=== PATIENT | female | born 1980 | race Caucasian/White ===

== ENCOUNTER → 2021-07-09 | Outpatient (CLI) | payer BC ==
[~2021-07-09] MED LIST: IBU800 M1 PO; PERCOCET 325 MG1 TA2 PO; PRENATAL1 TA7 PO
== END ==
LOC: MC.RAD 11:00
DX: Z12.31 Encounter for screening mammogram for malignant neoplasm of breast (principal)

== ENCOUNTER 2023-08-29 23:13 | Inpatient (IN) | payer BC ==
[~2023-08-29] VITALS: Ht 175.3 cm; Wt 89.1 kg
[2023-08-30] VITALS (28 sets, daily range): BP systolic 86–150; BP diastolic 51–93; PULSE 70–137; TEMP 97.8–98.1
--- NOTE | 2023-08-30 | NUR ---
MATERNAL- HEART RATE COINCIDENCE DUE TO MATERNAL POSITION. PATIENT IS STANDING AT BEDSIDE.
[2023-08-30] MEDS ORDERED: ROPivacaine PF 0.2% 200 ML IV ONE (00:10)
[2023-08-30] MEDS ORDERED: NS 10 ML IV ONE (00:13)
[2023-08-30] MEDS ORDERED: Lidocaine PF 2% (20 MG/ML) 5 ML VIAL ONE (00:13)
[2023-08-30] MEDS ORDERED: LR 1,000 ML IV SCH (00:15)
[2023-08-30 00:26] LABS: HEMATOCRIT 38.8 % (37.0-47.0); HEMOGLOBIN 12.3 g/dl (12.5-16.0); MEAN CELL VOLUME 92 fl (80.0-100.0); MEAN CORPUSCULAR HEMOGLOBIN 29 pg (27-31); MEAN CORPUSCULAR HGB CONC 32 g/dl (33.0-37.0); MEAN PLATELET VOLUME 10.7 fl (7.4-10.4); PLATELET COUNT 410 K/mm3 (130-400); RED BLOOD COUNT 4.22 M/mm3 (4.10-5.30); REDCELL DISTRIBUTION WIDTH-CV 14.6 % (11.5-14.5)
--- NOTE | 2023-08-30 00:27 | NUR ---
PT SITTING UP AT BEDSIDE FOR EPIDURAL PLACEMENT. 0027: TEST DOSE ADMINISTERED PER MILO ORTEGA. PT TOLERATED PROCEDURE WELL. DIFFICULTY TRACING HEART TONES D/T MATERNAL POSITIONING DURING PROCEDURE. TOCO ALSO DIFFICULTY TO TRACE. REPOSITIONED PATIENT TO WEDGE LEFT AFTER EPIDURAL PLACEMENT. NO OTHER CONCERNS REGARDING THIS PATIENT AT THIS TIME.
[2023-08-30] MEDS ORDERED: Ondansetron 4 MG/2 ML VIAL IV PRN (01:00)
[2023-08-30] MEDS ORDERED: Naloxone 0.4 MG/ML VIAL IV PRN ×2 (01:00→05:15)
[2023-08-30] MEDS ORDERED: diphenhydrAMINE 50 MG/ML 1 ML VIAL IV PRN (01:00)
[2023-08-30] MEDS ORDERED: ePHEDrine 50 MG/10 ML VIAL IV PRN (01:00)
[2023-08-30] MEDS ORDERED: diphenhydrAMINE 25 MG CAP PO PRN (01:00)
[2023-08-30 01:12] LABS: BAND 5 % (0-10); LYMPHOCYTE 11 % (20.0-51.0); NEUTROPHILS 83 % (42.0-75.2); PLATELET ESTIMATE NORMAL (NORMAL)
[2023-08-30] MEDS ORDERED: LR & Oxytocin 500 ML IV ONE (04:32)
--- NOTE | 2023-08-30 04:40 | NUR ---
AT 0400, PT CALLED THIS RN TO THE ROOM STATING SHE WAS FEELING PRESSURE. THIS RN CHECKED THE PATIENT, THE PATIENT SROM, GREEN FLECKED MECONIUM, NOT FOUL SMELLING. SVE OF PATIENT IS COMPLETE AT THIS TIME. PREPPING PATIENT WITH EDUCATION REGARDING PUSHING AND POSITIONING PATIENT FOR OPTIMAL PUSHING. 0410: BEGIN A PRACTICE PUSH WITH THE PATIENT. THE PATIENT WILL NEED TO PUSH FOR A LITTLE BIT PRIOR TO THE DOCTOR COMING. NOTIFIED CHARGE NURSE AT THIS TIME. 0412: BEGIN PURPOSEFUL PUSHING WITH THIS RN. 0419: NSY CALLS TO VERIFY PUSHING STATUS, THIS RN CONFIRMS. 0421: CALLED NSY TO INFORM THAT THIS RN IS CALLING IN FOR DELIVERY. 0422: NOTIFIED PHSYICIAN OF REQUEST TO COME FOR DELIVERY. 0425: AT BEDSIDE, PT PREPPED FOR DELIVERY. 0428: THIS RN CALLED OUT FOR NSY RNTaina SIMON, POOL FINISHER, COMES TO THE ROOM TO ASSIST. 0429: OF VIABLE FEMALE . STIMULATES INFANT, AND PLACES INFANT ON MATERNAL ABD. SHEA,RN TO THE ROOM AT THIS TIME. CORD CLAMPED X2 AND CUT PER . INFANT MOVED TO MATERNAL CHEST, CARE OF INFANT ASSUMED BY SHEA AT THIS TIME. CORD BLOOD OBTAINED AND PASSED OFF TO THIS RN. 0432: OF INTACT PLACENTA. PITOCIN STARTED AT 333MU/[id number] PER HOSPITAL PROTOCOL FOR . ASSESSMENT OF VAGINAL LACERATION PER , 2ND DEGREE REPAIR BEGINS AT THIS TIME. 0440: REPAIR COMPLETE, PT CLEANED UP AND REPOSITIONED IN BED WITH A PAD AND ICEPACK TO THE PERINEUM. PT COVERED WITH A WARM BLANKET. POST RECOVERY BEGINS AT THIS TIME. NO OTHER CONCERNS REGARDING THIS PATIENT AT THIS TIME.
[2023-08-30] MEDS ORDERED: Loratadine 10 MG TAB PO PRN (05:00)
[2023-08-30] MEDS ORDERED: Magnes Hydrox (MOM) 80 MG/ML 30 ML CUP PO PRN (05:00)
[2023-08-30] MEDS ORDERED: Witch Hazel 50% Pads Bulk TUB TP PRN (05:15)
[2023-08-30] MEDS ORDERED: oxyCODONE 5 MG TAB PO PRN (05:15)
[2023-08-30] MEDS ORDERED: Measles/Mumps/Rubella Virus Vaccine Live w Diluent 0.5 ML VIAL SQ SCH (05:15)
[2023-08-30] MEDS ORDERED: Ibuprofen 800 MG TAB PO SCH (05:15)
[2023-08-30] MEDS ORDERED: Phenylephrine/Mineral Oil/Petrolatum 57 GM TUBE RC PRN (05:15)
[2023-08-30] MEDS ORDERED: Mag/Al Hydrox/Simeth Susp 30 ML CUP PO PRN (05:15)
[2023-08-30] MEDS ORDERED: Acetaminophen 500 MG TAB PO SCH ×2 (05:15→20:00)
[2023-08-30] MEDS ORDERED: Sennosides/Docusate 8.6-50 MG TAB PO SCH (08:00)
[2023-08-30] MEDS ORDERED: traZODone 50 MG TAB PO PRN (21:00)
[2023-08-31 00:45] VITALS: BP 144/89; PULSE 75; TEMP 98.2
[2023-08-31] MEDS ORDERED: Ibuprofen 800 MG TAB PO SCH (01:00)
[2023-08-31 05:00] VITALS: BP 140/75; PULSE 96; TEMP 97.8
== END 2023-08-31 11:30 | disposition home or self-care (01) | DRG 807 ==
LOC: LDRO 23:13 → LDR 08-30 00:01 → OB 08-30 07:30
PROVIDERS: Obstetrics & Gynecology; ADMIT Student in an Organized Health Care Education/Training Program
PROC: 10E0XZZ Delivery of Products of Conception, External Approach (ICD-10-PCS; principal; 2023-08-30)
PROC: 0KQM0ZZ Repair Perineum Muscle, Open Approach (ICD-10-PCS; 2023-08-30)
DX: O99.62 Diseases of the digestive system complicating childbirth (principal); Z37.0 Single live birth; K21.9 Gastro-esophageal reflux disease without esophagitis; O99.02 Anemia complicating childbirth; O70.1 Second degree perineal laceration during delivery; O13.4 Gestational [pregnancy-induced] hypertension without significant proteinuria, complicating childbirth; O26.893 Other specified pregnancy related conditions, third trimester; O34.13 Maternal care for benign tumor of corpus uteri, third trimester; O77.0 Labor and delivery complicated by meconium in amniotic fluid; D25.9 Leiomyoma of uterus, unspecified; Z3A.38 38 weeks gestation of pregnancy; Z67.11 Type A blood, Rh negative; Z23 Encounter for immunization
CPT/HCPCS: J2590; J2795; J7120